=== PATIENT | female | born 1965 | race Caucasian/White ===

== ENCOUNTER 2025-03-10 18:25 | Inpatient (IN) | payer MEDICARE, OTHER ==
[~2025-03-10] VITALS: Ht 157.5 cm; Wt 55.6 kg
[2025-03-10 18:45] VITALS: O2SAT 98
[2025-03-10 19:33] LABS: BASOPHILS % (AUTO) 0.7 % (0.0-2.0); EOSINOPHILS % (AUTO) 2.4 % (1.0-6.0); HEMATOCRIT 42.4 % (36-46); LYMPHOCYTES # (AUTO) 2.3 K/uL (1.0-4.8); LYMPHOCYTES % (AUTO) 26.4 % (22.0-44.0); MEAN CORPUSCULAR HGB CONC 33.1 G/dL (31.0-37.0); MEAN CORPUSCULAR VOLUME 90 fL (80-100); MONOCYTES # (AUTO) 0.6 K/uL (0.1-1.0); MONOCYTES % (AUTO) 7.5 % (2.0-9.0); NEUTROPHILS # (AUTO) 5.4 K/uL (1.8-7.7); PLATELET COUNT (AUTO) 235 K/uL (150-450); RED BLOOD CELL COUNT(AUTO) 4.69 MIL/uL (4.00-5.20); RED CELL DISTRIBUTION WIDTH 14.5 % (11.5-14.5); WHITE BLOOD COUNT (AUTO) 8.6 K/uL (4.5-11.0)
[2025-03-10 19:41] LABS: ANION GAP 8 mmol/L (8-16); CALCIUM, TOTAL 8.8 mg/dL (8.8-10.5); CARBON DIOXIDE 28 mmol/L (22-29); CHLORIDE 110 mmol/L (98-107); CREATININE 0.77 mg/dL (0.60-1.30); GLOMERULAR FILTR. RATE CALC > 60 mL/min (>60); GLUCOSE,RANDOM 101 mg/dL (70-110); POTASSIUM 3.6 mmol/L (3.5-5.1); SODIUM SERUM 146 mmol/L (136-145); UREA NITROGEN, BLOOD 21 mg/dL (7-18)
[2025-03-10 19:50] LABS: ALCOHOL, BLOOD (SERUM) < 3 mg/dL (0-10)
[2025-03-10 20:01] LABS: COVID AG,FIA SOURCE NASAL SWAB
[2025-03-10] MEDS: LORazepam 2 MG TABLET PO ONE (20:07)
[2025-03-10 20:09] LABS: SARS-COV2 (COVID) ANTIGEN,FIA Negative (Negative)
[2025-03-10] MEDS ORDERED: ZOLPIDEM TARTRATE 10 MG TABLET PO PRN (22:00)
[2025-03-10] MEDS ORDERED: GuaiFENesin/D-METHORPHAN [SUGAR-FREE] 200-20MG/10 ML SYRUP UDCUP PO PRN (22:00)
[2025-03-10] MEDS ORDERED: LOPERAMIDE HCL 2 MG CAPSULE PO PRN (22:00)
[2025-03-10] MEDS ORDERED: ACETAMINOPHEN 325 MG TABLET PO PRN (22:00)
[2025-03-10] MEDS ORDERED: QUEtiapine FUMARATE 100 MG TABLET PO PRN (22:00)
[2025-03-10] MEDS ORDERED: LORazepam 2 MG TABLET PO PRN (22:00)
[2025-03-10] MEDS ORDERED: MAG HYDROX/ALUMINUM HYD/SIMETH ES 30 ML SUSPENSION UDCUP PO PRN (22:00)
[2025-03-10] MEDS ORDERED: MAGNESIUM HYDROXIDE SUSPENSION 30 ML UDCUP PO PRN (22:00)
[2025-03-10] MEDS ORDERED: PROMETHAZINE HCL 25 MG TABLET PO PRN (22:00)
[2025-03-10] MEDS ORDERED: HydrOXYzine PAMOATE 50 MG CAPSULE PO PRN (22:00)
[2025-03-11 04:52] VITALS: BP 125/74; PULSE 60; RESP 16; TEMP 97.3; O2SAT 95
[2025-03-11 08:35] VITALS: BP 101/53; PULSE 48; RESP 17; TEMP 98.2; O2SAT 99
[2025-03-11] MEDS ORDERED: MULTIVITAMINS WITH MINERALS, THERAPEUTIC TABLET PO SCH (09:00)
[2025-03-11] MEDS ORDERED: LamoTRIgine 25 MG TABLET PO SCH (09:00)
[2025-03-11] MEDS ORDERED: OMEGA-3/DHA/EPA/FISH OIL 1,000 MG CAPSULE PO SCH (09:00)
[2025-03-11] MEDS ORDERED: TUBERCULIN, PURIFIED PROTEIN DERIVATIVE 5 TU/0.1 ML SYRINGE ID ONE (09:00)
[2025-03-11] MEDS ORDERED: FOLIC ACID 1 MG TABLET PO SCH (09:00)
[2025-03-11] MEDS ORDERED: THIAMINE 100 MG TABLET PO SCH (09:00)
[2025-03-11] MEDS ORDERED: DULoxetine HCL 20 MG CAPSULE PO SCH (09:00)
[2025-03-11] MEDS ORDERED: LAMO200T10 PO (10:10)
[2025-03-11] MEDS ORDERED: BACL10TA PO (10:10)
[2025-03-11] MEDS ORDERED: LURA20TA2 PO (10:10)
[2025-03-11] MEDS ORDERED: METH1TAB66 PO (10:10)
[2025-03-11] MEDS ORDERED: VARE1TAB28 PO (10:10)
[2025-03-11] MEDS ORDERED: LITH300T45 PO (10:10)
[2025-03-11] MEDS ORDERED: DOXA8 PO (10:10)
[2025-03-11] MEDS ORDERED: PREG50CA64 PO (10:10)
[2025-03-11] MEDS ORDERED: OLAN2.5T78 PO (10:10)
[2025-03-11] MEDS ORDERED: OXYB10TA42 PO (10:10)
[2025-03-11 10:14] LABS: HEMOGLOBIN A1C 5.2 % (3.8-5.6)
[2025-03-11 10:27] LABS: CHOL/HDL RATIO 3.2 (3.9-5.7); FREE T4 (FREE THYROXINE) 0.94 ng/dL (0.76-1.46); THYROID STIMULATING HORMONE 0.33 uIU/mL (0.36-3.74)
[2025-03-11] MEDS ORDERED: DIAZ2TAB3 PO (10:35)
[2025-03-11] MEDS ORDERED: PANT40TA54 PO (10:35)
[2025-03-11] MEDS ORDERED: DIVALPROEX SODIUM 250 MG ER TABLET PO SCH (21:00)
[2025-03-11] MEDS ORDERED: MELATONIN 5 MG TABLET PO SCH (21:00)
== END 2025-03-11 15:56 | disposition short-term general hospital (02) | DRG 885 ==
LOC: EMS 19:46 → B3A 03-11 02:19
PROVIDERS: ADMIT Psychiatry & Neurology Psychiatry; ATTEND Psychiatry & Neurology Psychiatry
PROC: GZHZZZZ Group Psychotherapy (ICD-10-PCS; principal; 2025-03-11)
PROC: GZ58ZZZ Individual Psychotherapy, Cognitive-Behavioral (ICD-10-PCS; 2025-03-11)
PROC: GZ56ZZZ Individual Psychotherapy, Supportive (ICD-10-PCS; 2025-03-11)
DX: F33.2 Major depressive disorder, recurrent severe without psychotic features (principal); R45.851 Suicidal ideations; G35 Multiple sclerosis; Z20.822 Contact with and (suspected) exposure to COVID-19; F41.9 Anxiety disorder, unspecified; Z87.891 Personal history of nicotine dependence; F31.30 Bipolar disorder, current episode depressed, mild or moderate severity, unspecified
CPT/HCPCS: 80048; 80061; 83036; 84439; 84443; 85025; 99285; G0480